=== PATIENT | female | born 1940 | race Caucasian/White ===

== ENCOUNTER 2019-03-09 12:43 | Emergency (ER) | payer MEDICARE, OTHER ==
[~2019-03-09] VITALS: Ht 154.9 cm; Wt 65.8 kg
[~2019-03-09 12:43] MED LIST: ALL DAY ALLERGY10 M1 PO; AMLO5 PO; AMOCLA500 PO; ASCO500 PO; ASPI81CH PO; ATOR40TA PO; Aspirin EC81 MG PO; BENZ100A PO; BLOOD PRESSURE MED; CALCAVITD PO; CHOL10002 PO; CYAN1000 PO; DOCU100 PO; Doxycycline Hy100 MG PO; FISH OIL + D31 EACH; FISH1000 PO; Fosamax70 MG PO; GUAIFENESIN-DM S5 ML PO; HYALURONIC ACI1 EACH PO; LEVFLO500 PO; LEVSOD100 PO; LISI20 PO; Niacinamide500 MG PO; SIMV40 PO; SODCHL.65S; TRAM50 PO; TRAZ50 PO; VITAMIN B PO
[2019-03-09 13:21] LABS: BASOPHILS ABSOLUTE AUTO 0.05 K/mm3 (0.00-0.23); BASOPHILS PERCENT AUTO 1 % (0-2); EOSINOPHILS ABSOLUTE AUTO 0.09 K/mm3 (0.00-0.68); EOSINOPHILS PERCENT AUTO 1 % (0-6); Hematocrit 45.1 % (33.0-51.0); Hemoglobin 14.9 g/dL (11.5-16.0); IMMATURE GRAN ABSOLUTE AUTO 0.01 K/mm3 (0.00-0.10); IMMATURE GRAN PERCENT AUTO 0 % (0-1); LYMPHOCYTES ABSOLUTE AUTO 3.13 K/mm3 (0.84-5.20); LYMPHOCYTES PERCENT AUTO 34 % (21-46); MONOCYTES ABSOLUTE AUTO 0.56 K/mm3 (0.16-1.47); MONOCYTES PERCENT AUTO 6 % (4-13); Mean Corpuscular HGB 30.3 pg (26.0-34.0); Mean Corpuscular Volume 92 fL (80-100); Mean Platelet Volume 10.6 fL (9.1-12.4); NEUTROPHILS ABSOLUTE AUTO 5.31 K/mm3 (1.96-9.15); NEUTROPHILS PERCENT AUTO 58 % (41-73); Platelet Count 262 K/mm3 (150-400); RDW Coefficient Variation 12.3 % (11.7-14.2); RDW Standard Deviation 41.1 fL (35.1-46.3); Red Blood Cell Count 4.92 M/mm3 (3.80-5.20); White Blood Cell Count 9.15 K/mm3 (4.00-11.30)
[2019-03-09] MEDS ORDERED: ROSU5 PO (13:36)
[2019-03-09 13:47] LABS: Alanine Aminotransfer (ALT/SGP 25 U/L (12-78); Albumin, Blood 4.1 g/dL (3.4-5.0); Albumin/Globulin Ratio 1.2 (0.8-1.8); Alk Phos 59 U/L (50-136); Anion Gap 6 mmol/L (6-16); Aspartate Aminotrans (AST/SGOT 26 U/L (12-37); Bilirubin, Total 0.6 mg/dL (0.1-1.0); Blood Urea Nitrogen 21 mg/dL (8-24); Bun/Creatinine Ratio 21.3 (12.0-20.0); CO2, Blood 26 mmol/L (21-32); Calcium, Blood 10.1 mg/dL (8.5-10.1); Chloride, Blood 107 mmol/L (98-108); Creatinine, Blood 0.98 mg/dL (0.40-1.00); Globulin, Blood 3.3 g/dL (2.2-4.0); Glomerular Filtration Rate 58 (60-); Glucose, Blood 108 mg/dL (70-99); Potassium, Blood 4.5 mmol/L (3.5-5.5); Sodium, Blood 139 mmol/L (136-145); Total Protein, Blood 7.4 g/dL (6.4-8.2); Troponin I <0.015 ng/mL (0.000-0.040)
== END 2019-03-09 17:37 | disposition home or self-care (01) ==
LOC: ER 12:43
PROVIDERS: Physician Assistant
DX: R07.9 Chest pain, unspecified (principal); Z87.891 Personal history of nicotine dependence; Z88.5 Allergy status to narcotic agent; Z79.82 Long term (current) use of aspirin; Z79.899 Other long term (current) drug therapy
CPT/HCPCS: 36415; 71046; 80053; 84484; 85025; 93005; 93010; 99285-25

== ENCOUNTER → 2020-05-26 | Outpatient (CLI) | payer MEDICARE, OTHER ==
[~2020-05-26] MED LIST changes: +ROSU5 PO
== END | disposition home or self-care (01) ==
LOC: LAB 08:25 → LAB SHORT 08:25
DX: R10.13 Epigastric pain (principal)
CPT/HCPCS: 87338

== ENCOUNTER → 2020-07-14 | Outpatient (CLI) | payer MEDICARE, OTHER ==
[~2020-07-14] MED LIST changes: +Prinivil10 MG PO; +ZOCOR20 MG PO
== END | disposition home or self-care (01) ==
LOC: LAB SHORT 08:00 → PLD 08:00
DX: R93.89 Abnormal findings on diagnostic imaging of other specified body structures (principal)
CPT/HCPCS: 88305

== ENCOUNTER 2020-10-08 09:58 | Day surgery (SDC) | payer MEDICARE, OTHER ==
[~2020-10-08] VITALS: Ht 157.5 cm; Wt 70.0 kg
[~2020-10-08 09:58] MED LIST changes: -Prinivil10 MG PO; -ZOCOR20 MG PO
[2020-10-08] MEDS ORDERED: ZOCOR20 MG PO (10:21)
[2020-10-08] MEDS ORDERED: Prinivil10 MG PO (10:21)
--- NOTE | 2020-10-08 10:42 | NUR ---
10/08/20 1042 SHYAM AVILES pt updated PROCEDURE TIME IS SCHEDULED FOR 11OO. PT DENIES QUESTIONS/ NEEDS AT THIS TIME.
--- NOTE | 2020-10-08 11:49 | NUR ---
10/08/20 1149 Winsome Barber PT SEATED AT END OF SURGICAL BED IN ROLLING CHAIR WITH BACK. PT LEANING FORWARD ONTO 2 STACKED PILLOWS WITH ARMS IN LAP
== END 2020-10-08 12:20 | disposition home or self-care (01) ==
LOC: ORSCSDS 09:58
PROVIDERS: Anesthesiology
PROC: 3E0R33Z Introduction of Anti-inflammatory into Spinal Canal, Percutaneous Approach (ICD-10-PCS; principal; 2020-10-08 11:00)
DX: M50.122 Cervical disc disorder at C5-C6 level with radiculopathy (principal); I10 Essential (primary) hypertension; E78.00 Pure hypercholesterolemia, unspecified; J44.9 Chronic obstructive pulmonary disease, unspecified; K44.9 Diaphragmatic hernia without obstruction or gangrene; Z79.82 Long term (current) use of aspirin; Z79.899 Other long term (current) drug therapy
CPT/HCPCS: J1040; J2250; J3010

== ENCOUNTER → 2020-10-14 | Outpatient (CLI) | payer MEDICARE, OTHER ==
[~2020-10-14] MED LIST changes: +Prinivil10 MG PO; +ZOCOR20 MG PO
== END ==
LOC: LAB SHORT 07:09 → LAB 07:09
DX: D04.61 Carcinoma in situ of skin of right upper limb, including shoulder (principal)
CPT/HCPCS: 88342

== ENCOUNTER → 2022-03-09 | Outpatient (CLI) | payer MEDICARE, OTHER | END | disposition home or self-care (01) | LOC: LAB 07:26 → LAB SHORT 07:26 | DX: R93.89 Abnormal findings on diagnostic imaging of other specified body structures (principal) | CPT/HCPCS: 88305 ==

== ENCOUNTER 2022-04-17 06:55 | Day surgery (SDC) | payer MEDICARE, OTHER ==
[~2022-04-17] VITALS: Ht 154.9 cm; Wt 64.2 kg
[2022-04-17] MEDS ORDERED: Aspirin EC650 MG (07:44)
== END 2022-04-17 09:36 | disposition home or self-care (01) ==
LOC: ORSCSDS 06:55
PROVIDERS: Obstetrics & Gynecology
PROC: 0UDB8ZX Extraction of Endometrium, Via Natural or Artificial Opening Endoscopic, Diagnostic (ICD-10-PCS; principal; 2022-04-17 08:30)
DX: N95.0 Postmenopausal bleeding (principal); R93.89 Abnormal findings on diagnostic imaging of other specified body structures; I10 Essential (primary) hypertension; K21.9 Gastro-esophageal reflux disease without esophagitis; E78.00 Pure hypercholesterolemia, unspecified; Z79.899 Other long term (current) drug therapy; Z79.82 Long term (current) use of aspirin
CPT/HCPCS: 88305; J1100; J1885; J2001; J2250; J2405; J2704; J2795; J3010; J7120

== ENCOUNTER 2024-06-09 06:14 | Day surgery (SDC) | payer OTHER ==
[~2024-06-09] VITALS: Ht 154.9 cm; Wt 65.5 kg
[~2024-06-09 06:14] MED LIST changes: +Aspirin EC650 MG
[2024-06-09] MEDS ORDERED: FentaNYL Citrate 50 MCG/ML 2 ML Injection ONE (06:37)
[2024-06-09] MEDS ORDERED: Midazolam HCl 1MG / ML 2ML Vial ONE (06:37)
[2024-06-09] MEDS ORDERED: propofoL 20 ML IV ONE (06:37)
[2024-06-09] MEDS ORDERED: Ondansetron HCl 2 MG / ML 2ML Vial ONE ×2 (06:41→09:53)
[2024-06-09] MEDS ORDERED: Bupivacaine 0.5% HCl 5 MG/ML 30MLVIAL ONE (06:41)
[2024-06-09] MEDS ORDERED: Dexamethasone Sod Phos 10 MG/ML 1ML VIAL ONE (06:42)
[2024-06-09] MEDS ORDERED: AMLO5 (06:58)
[2024-06-09] MEDS ORDERED: FAMO20 (06:58)
[2024-06-09] MEDS ORDERED: DERMACINRX FOL1 EAC2 PO (06:59)
[2024-06-09] MEDS ORDERED: FOLI1 (07:00)
[2024-06-09] MEDS ORDERED: C COMPLEX1000 M1 PO (07:01)
[2024-06-09] MEDS ORDERED: CALCIUM CIT 311 EAC7 PO (07:02)
[2024-06-09] MEDS ORDERED: DOCU100 PO (07:02)
[2024-06-09] MEDS ORDERED: Tranexamic Acid 100 ML IV ONE (07:10)
[2024-06-09] MEDS ORDERED: Lactated Ringer's 1,000 ML IV ONE (07:12)
--- NOTE | 2024-06-09 07:35 | NUR ---
06/09/24 0735 NARCISA WOODARD BLOCK PROCEDURE START [id number] END. TIMEOUT COMPLETED 719 AT BEDSIDE WITH ANESTHESIA, PT, THIS RN. SATS MONITORED T/O PROCEDURE. NO COMPLICATIONS.
[2024-06-09] MEDS ORDERED: Phenylephrine HCl 100 MCG/ML-NS 10MLSYR (1MG/10ML) ONE (08:04)
[2024-06-09] MEDS ORDERED: EPINEPhrine HCl 1 MG/ML IV XX ONE (08:11)
[2024-06-09] MEDS ORDERED: Bupivacaine 0.5% Inj 50 ML Vial (NON CHARGE) INJ ONE (08:11)
--- NOTE | 2024-06-09 08:40 | NUR ---
06/09/24 0840 Cindy Girard GIVEN @[id number] BY ANESTH
[2024-06-09] MEDS ORDERED: NS 1,000 ML IV ONE (08:51)
[2024-06-09] MEDS ORDERED: CefTRIAXone Sodium 2,000 MG in NS 100 ML IV SCH (09:00)
[2024-06-09] MEDS ORDERED: Sugammadex Sodium 200 MG/2ML SDV (100 MG/ML) ONE (09:47)
[2024-06-09] MEDS ORDERED: EPINEPhrine HCl 1 MG/ML 1ML Amp ONE (10:06)
[2024-06-09 10:10] VITALS: BP 133/70
--- NOTE | 2024-06-09 10:21 | NUR ---
06/09/24 1020 ERICK CHE WAITING ON IMAGING FOR XRAY. PT DENIES PAIN, NAUSEA STARTING TO PASS. STATES NUMBNESS AND TINGLING IN FINGERS IS WHAT IS BOTHERING HER AT THIS TIME. PT ALERT AND TALKING. CONTINUES TO BE ON 2L PER NC. O2 SAT CURRENTLY 94%
[2024-06-09] MEDS ORDERED: CeFAZolin Sodium 2,000 MG VIAL ONE (12:44)
== END 2024-06-09 12:33 | disposition home or self-care (01) ==
LOC: ORSCSDS 06:14
PROVIDERS: Orthopaedic Surgery
PROC: 0RRJ00Z Replacement of Right Shoulder Joint with Reverse Ball and Socket Synthetic Substitute, Open Approach (ICD-10-PCS; principal; 2024-06-09 07:30)
DX: M19.011 Primary osteoarthritis, right shoulder (principal); I10 Essential (primary) hypertension; Z87.891 Personal history of nicotine dependence; E78.00 Pure hypercholesterolemia, unspecified; K21.9 Gastro-esophageal reflux disease without esophagitis; Z79.899 Other long term (current) drug therapy; Z79.82 Long term (current) use of aspirin; J44.9 Chronic obstructive pulmonary disease, unspecified
CPT/HCPCS: 73030; C1713; C1776; J0171; J0690; J0696; J1100; J2250; J2371; J2405; J2704; J3010; J7030

== ENCOUNTER 2024-06-09 18:33 | Emergency (ER) | payer OTHER ==
[~2024-06-09] VITALS: Ht 154.9 cm; Wt 66.7 kg
[~2024-06-09 18:33] MED LIST changes: +AMLO5; +C COMPLEX1000 M1 PO; +CALCIUM CIT 311 EAC7 PO; +DERMACINRX FOL1 EAC2 PO; +FAMO20; +FOLI1
[2024-06-09 18:40] VITALS: BP 182/69
== END 2024-06-09 18:55 | disposition home or self-care (01) ==
LOC: ER 18:33
DX: M25.511 Pain in right shoulder (principal); Z79.82 Long term (current) use of aspirin; Z79.899 Other long term (current) drug therapy; Z88.5 Allergy status to narcotic agent
CPT/HCPCS: 99282